=== PATIENT | female | born 1970 | race Native Hawaiian/Other Pacific Islander ===

== ENCOUNTER 2016-08-30 20:17 | Emergency (ER) | payer BC ==
[2016-08-30 20:22] VITALS: BP 101/58; PULSE 66; RESP 20; TEMP 98.1; O2SAT 100
--- NOTE | 2016-08-30 20:43 | C.PDOC ---
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 Patient states she was wearing high heels in her backyard and was going down steps when she lost balance and fell onto her outstretched right hand and twisted left ankle. Patient notes she took 2 Motrin tablets prior to ED arrival and declines any further analgesics at this time. Patient did not hit head, denies LOC, syncope , lightheadedness, or chest pain prior to the fall. Time Seen by Provider: 08/30/16 20:32 Chief Complaint (Nursing): Lower Extremity Problem/Injury History Per: Patient History/Exam Limitations: no limitations Onset/Duration Of Symptoms: Hrs Current Symptoms Are (Timing): Still Present Additional History Per: Patient - Ankle/Foot Description Of Injury: Fell, Twisted Past Medical History Reviewed: Historical Data, Nursing Documentation, Vital Signs Vital Signs: Last Vital Signs Temp 98.1 F 08/30/16 20:18 Pulse 66 08/30/16 20:18 Resp 20 08/30/16 20:18 BP 101/58 L 08/30/16 20:18 Pulse Ox 100 08/30/16 22:35 - Medical History PMH: No Chronic Diseases Surgical History: No Surg Hx Family History: States: Unknown Family Hx - Social History Hx Alcohol Use: Yes Hx Substance Use: No - Immunization History Hx Tetanus Toxoid Vaccination: No Hx Influenza Vaccination: No Hx Pneumococcal Vaccination: No Review Of Systems Constitutional: Negative for: Fever Cardiovascular: Negative for: Chest Pain, Palpitations, Light Headedness Musculoskeletal: Positive for: Other (right wrist pain, left ankle pain ). Negative for: Neck Pain Neurological: Negative for: Weakness, Numbness, Dizziness Physical Exam - Physical Exam Appears: Non-toxic, No Acute Distress Skin: Normal Color, Warm, Dry Head: Atraumatic, Normacephalic Eye(s): bilateral: Normal Inspection Oral Mucosa: Moist Neck: No Midline Cervical Tenderness, Supple Chest: Symmetrical, No Deformity, No Tenderness Cardiovascular: Rhythm Regular, No Murmur Respiratory: Normal Breath Sounds, No Rales, No Rhonchi, No Wheezing Gastrointestinal/Abdominal: Soft, No Tenderness Back: Normal Inspection, No Vertebral Tenderness, No Paraspinal Tenderness Extremity: Normal ROM, Tenderness (mild to dorsum of right wrist and left lateral malleolus ), Capillary Refill (less than 2 seconds ), Swelling (mild to left lateral malleolus ), Other (no tenderness to left 5th metatarsal; left foot non tender, from at ankle and knee. ) Extremity: Left: Painful To Bear Weight (ankle), Right: Atraumatic Pulses: Left Dorsalis Pedis: Normal, Right Dorsalis Pedis: Normal Neurological/Psych: Oriented x3, Normal Speech, Normal Cognition, Normal Sensation Gait: Steady ED Course And Treatment O2 Sat by Pulse Oximetry: 100 (on RA) Pulse Ox Interpretation: Normal Orthopedic Time Performed: 09:45 Time Out: Side verified Procedure: Splint Type: Posterior Location: Left, Leg Consent obtained: Verbal Performed by: Mid-level Provider (and clincial provider) Type: Closed, Comminuted Location: Left, Distal Bone: Fibula Capillary refill: Normal Capillary Refill: Normal Compartment: Normal Distal Sensation: Normal Distal Motor Function: Normal Patient tolerated procedure: Well Medical Decision Making Medical Decision Making: Impression: 46 y/o female with right wrist pain, left ankle pain Plan: * right wrist XR * left ankle XR * reassess and disposition Progress: right wrist XR and left ankle XR ordered and reviewed. 10 pm pt with posterior splint and crutches given. will d/c with ortho f/u/ Disposition Counseled Patient/Family Regarding: Studies Performed, Diagnosis, Need For Followup, Rx Given - Disposition Referrals: Pedro Wright III, MD [Staff Provider] - Disposition: HOME/ ROUTINE Disposition Time: 22:30 Condition: STABLE Additional Instructions: Keep splint on leg clean and dry. Cover with plastic to bathe. Use crutches, no weight bearing until seen by orthopedist. Follow up with Dr Wright or orthopedist of your choice next week... Ibuprofen 600 mg by mouth every 6 hours for pain; Tylenol with codeine at bedtime for severe pain. Return to ER for any worse pain in leg, tingling or numbness in leg or any other concerns. 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 - Scribe Statement The provider has reviewed the documentation as recorded by the Scribe (Michaela Florian) All medical record entries made by the Scribe were at my direction and personally dictated by me. I have reviewed the chart and agree that the record accurately reflects my personal performance of the history, physical exam, medical decision making, and the department course for this patient. I have also personally directed, reviewed, and agree with the discharge instructions and disposition.
[2016-08-30] MEDS ORDERED: Acetaminophen-Codeine 300/30 mg Tab PO STA (22:28)
[2016-08-30] MEDS ORDERED: Acetaminophen-Codeine 300/30 mg Tab PO ONE (22:31)
--- NOTE | 2016-08-31 10:26 | RAD ---
PROCEDURE: Left Ankle Radiographs. HISTORY: lat mal swelling. s/p twist COMPARISON: None FINDINGS: BONES: Oblique/diagonal fracture traversing the distal diametaphysis left fibula. . Tiny bony density seen within the soft tissues subjacent to the inferior tip of the medial malleolus. This could represent some old posttraumatic mineralization however the possibility of a tiny avulsion fracture not excluded. There is overlying soft tissue swelling. . Tiny plantar surface calcaneal enthesophyte JOINTS: . No osteoarthritis. Ankle mortise maintained. Talar dome intact SOFT TISSUES: As above OTHER FINDINGS: None. IMPRESSION: Oblique/diagonal fracture traversing the distal diametaphysis left fibula. . Tiny bony density seen within the soft tissues subjacent to the inferior tip of the medial malleolus. This could represent some old posttraumatic mineralization however the possibility of a tiny avulsion fracture not excluded. There is overlying soft tissue swelling. .
--- NOTE | 2016-08-31 10:42 | RAD ---
PROCEDURE: Right Wrist Radiographs. HISTORY: fall on outstretched hand COMPARISON: None. FINDINGS: BONES: Normal. No fracture. JOINTS: Normal. No dislocation. SOFT TISSUES: Normal. OTHER FINDINGS: None. IMPRESSION: No definitive radiographic evidence of acute displaced fracture nor dislocation. If symptoms persist or occult fracture suspected clinically recommend followup radiographs 7-10 days as most fractures should become radiographically evident in this timeframe.
== END 2016-08-30 22:42 | disposition home or self-care (01) ==
LOC: C.ER 20:17
DX: S82.832A Other fracture of upper and lower end of left fibula, initial encounter for closed fracture (principal); W10.9XXA Fall (on) (from) unspecified stairs and steps, initial encounter